=== PATIENT | male | born 1965 | race Caucasian/White ===

== ENCOUNTER → 2019-01-11 | Outpatient (CLI) | payer OTHER ==
--- NOTE | 2019-01-11 19:42 | DRAGON STRESS TEST REPORT ---
EXERCISE TREADMILL TEST. DATE OF PROCEDURE: January 11, 2019 INDICATION: Coronary artery disease Coronary risk factors: Hypertension, hyperlipidemia. Resting EKG: Sinus rhythm, no baseline ST segment changes. Stress EKG: No significant changes noted with with exercise treadmill. Reason for termination: Dyspnea and fatigue. PROCEDURE REPORT: Baseline heart rate: 52 beats per minute with blood pressure of 121/85. Patient had no significant complaints at baseline. Patient was exercised on a standard Stephen protocol. Patient exercised for total of 11 minutes and 11 seconds. Exercise was stopped because of fatigue and shortness of breath. Patient denied any chest arm or neck discomfort during the exercise, at peak exercise or in recovery. If automatic blood pressure recorded and if felt not accurate manual blood pressure then were recorded at appropriate intervals. Peak heart rate: 142 bpm, 85 of predicted maximum. Peak blood pressure: 173/74 mmHg. Double product: Adequate kcal Exercise EKG: Showed some baseline artifact during exercise but no significant ST segment changes noted. CONCLUSIONS: Normal EKG and hemodynamic response to exercise. Excellent exercise tolerance. Negative EKG changes with exercise. RECOMMENDATIONS: Aggressive risk factor modification, medical therapy. Consider cardiology consultation if clinically indicated. Fidel Davies M.D., [employer] Analyst automated teller manager, Board certified in cardiovascular diseases, Nuclear cardiology, Echocardiography Cardiac CT and cardiac MRI Ph. [phone] Ph. [phone] [facility]
--- NOTE | 2019-01-11 20:03 | XCELERA REPORT ---
[address] [address] Transthoracic Echocardiogram Report Name: ABA KAYE Age: 53 yrs Gender: Male : 1965 Patient Status: Outpatient Patient Location: Study Date: 01/11/2019 08:09 AM Height: 68 in Weight: 196 lb BSA: 2.0 m2 Procedure: A complete two-dimensional transthoracic echocardiogram was performed (2D, M-mode, spectral and color flow Doppler). The study was technically adequate with some images being suboptimal in quality. Reason For Study: CORONARY ARTERIAL DISEASE Ordering Physician: KULWANT PENA Performed By: Karen Murguia Interpretation Summary The left ventricular ejection fraction is normal. Doppler measurements suggest normal left ventricular diastolic function The left ventricle is grossly normal size. No regional wall motion abnormalities noted. The right ventricular systolic function is normal. The left atrial size is normal. The right atrium is normal. There is a trace amount of mitral regurgitation There is no mitral valve stenosis. No aortic regurgitation is present. There is no aortic valve stenosis There is a trace or physiologic amount of tricuspid regurgitation Tricuspid regurgitation jet envelope not well defined to measure RV systolic pressure accurately. The aortic root is not well visualized but is probably normal size. The inferior vena cava was not well visualized There is no pericardial effusion. MMode/2D Measurements & Calculations IVSd: 0.67 cm LVIDd: 5.1 cm FS: 37.3 % Ao root diam: LVIDs: 3.2 cm EDV(Teich): 3.1 cm 123.8 ml Ao root area: LVPWd: 0.94 cm ESV(Teich): 40.8 ml7.6 cm2 EF(Teich): 67.0 % EDV(MOD-sp4): SV(MOD-sp4): 92.2 ml 50.1 ml ESV(MOD-sp4): 42.1 ml EF(MOD-sp4): 54.3 % Doppler Measurements & Calculations MV E max dionisio: MV dec slope: Ao V2 max: LV V1 max P.1 cm/sec 90.0 cm/sec 2.7 mmHg MV A max dionisio: 522.9 cm/sec2 Ao max PG: LV V1 max: 56.4 cm/sec MV dec time: 0.16 sec 3.2 mmHg 82.4 cm/sec MV E/A: 1.4 PA V2 max: TR max dionisio: 85.5 cm/sec 196.6 cm/sec PA max P.9 mmHg TR max P.5 mmHg Left Ventricle The left ventricle is grossly normal size. The left ventricular ejection fraction is normal. Doppler measurements suggest normal left ventricular diastolic function. No regional wall motion abnormalities noted. Right Ventricle The right ventricle is grossly normal size. There is normal right ventricular wall thickness. The right ventricular systolic function is normal. Atria The right atrium is normal. The left atrial size is normal. Interarterial septum not well visualized and not well dopplered. Cannot comment on ASD/PFO presence. Mitral Valve The mitral valve is grossly normal. There is no mitral valve stenosis. There is a trace amount of mitral regurgitation. Aortic Valve The aortic valve is grossly normal. There is no aortic valve stenosis. No aortic regurgitation is present. Tricuspid Valve The tricuspid valve is not well visualized, but is grossly normal. There is no tricuspid stenosis. There is a trace or physiologic amount of tricuspid regurgitation. Tricuspid regurgitation jet envelope not well defined to measure RV systolic pressure accurately. Pulmonic Valve The pulmonic valve is not well seen, but is grossly normal. Great Vessels The aortic root is not well visualized but is probably normal size. The inferior vena cava was not well visualized. Effusions There is no pericardial effusion. : KULWANT PENA > Fidel Davies
== END ==
LOC: SP 07:42
PROVIDERS: ATTEND Physician Assistant
DX: I25.10 Atherosclerotic heart disease of native coronary artery without angina pectoris (principal); I10 Essential (primary) hypertension; E78.5 Hyperlipidemia, unspecified
CPT/HCPCS: 93017; 93306

== ENCOUNTER 2019-08-16 08:05 | Day surgery (SDC) | payer BC, OTHER ==
[2019-08-10 10:07] LABS: HEMATOCRIT 45.4 % (37.9-51.0); MEAN CORPUSCULAR HEMOGLOBIN 31.1 pg (27.0-33.4); MEAN CORPUSCULAR HGB CONC 35.2 g/dL (32.0-36.0); MEAN CORPUSCULAR VOLUME 88 fl (80-97); PLATELET COUNT 207 10^3/uL (150-450); RED BLOOD COUNT 5.14 10^6/uL (4.35-5.55); RED CELL DISTRIBUTION WIDTH 12.6 % (11.5-14.0); WHITE BLOOD COUNT 6.5 10^3/uL (4.0-10.5)
--- NOTE | 2019-08-10 10:12 | EKG REPORT ---
SEVERITY:- NORMAL ECG - SINUS RHYTHM : Confirmed by: Jeanette Zamora MD 10-Aug-2019 10:11:22
[2019-08-10 10:44] LABS: ANION GAP 11 (5-19); BLOOD UREA NITROGEN 20 mg/dL (7-20); CALCIUM 9.5 mg/dL (8.4-10.2); CARBON DIOXIDE 31 mmol/L (22-30); CHLORIDE 100 mmol/L (98-107); GLUCOSE 107 mg/dL (75-110); POTASSIUM 4.9 mmol/L (3.6-5.0)
[~2019-08-16 08:05] MED LIST: CEFAZOLIN 1 GM/D5W RTU 1 GM/50 ML RTUPB IV PRN; LACTATED RINGERS 1000 ML IV PRN; LIDOCAINE 0.5% INJ-PF (5 MG/ML) 50 ML SDV SUBCUT PRN
[2019-08-16] MEDS ORDERED: ONDANSETRON HCL INJ/PF 4 MG/2 ML SDV ONE (08:38)
[2019-08-16] MEDS ORDERED: DEXAMETHASONE SOD PHOSPHATE INJ 4 MG/1 ML VIAL ONE (08:38)
[2019-08-16] MEDS ORDERED: KETOROLAC TROMETHAMINE 60 MG/2 ML SDV ONE (08:38)
[2019-08-16] MEDS ORDERED: PROPOFOL INJ 200 MG/20 ML VIAL IV ONE (08:38)
[2019-08-16] MEDS ORDERED: MIDAZOLAM 2 MG/2 ML INJ ONE (08:38)
[2019-08-16] MEDS ORDERED: FENTANYL CITRATE INJ/PF 100 MCG/2 ML AMPUL ONE (08:38)
[2019-08-16] MEDS ORDERED: DIPHENHYDRAMINE HCL 50 MG/ML VIAL IV PRN (09:41)
[2019-08-16] MEDS ORDERED: OXYCODONE-ACETAMINOPHEN 5-325 MG TABLET PO PRN (09:41)
[2019-08-16] MEDS ORDERED: MEPERIDINE HCL/PF INJ 25 MG/1 ML DISP.SYRIN IV PRN (09:41)
[2019-08-16] MEDS ORDERED: ONDANSETRON HCL INJ/PF 4 MG/2 ML SDV IV PRN (09:41)
[2019-08-16] MEDS ORDERED: FENTANYL CITRATE INJ/PF 100 MCG/2 ML AMPUL IV PRN ×3 (09:41)
[2019-08-16] MEDS ORDERED: MORPHINE SULFATE 10 MG/ML INJ IV PRN (09:41)
[2019-08-16] MEDS ORDERED: PROMETHAZINE HCL INJ 25 MG/1 ML VIAL IV PRN (09:41)
[2019-08-16] MEDS ORDERED: CEFAZOLIN 1 GM/D5W RTU 1 GM/50 ML RTUPB IV ONE (10:24)
[2019-08-16] MEDS ORDERED: BUPIVACAINE INJ/PF LIPOSOME/PF 266 MG/20 ML SDV ONE (10:35)
--- NOTE | 2019-08-16 12:31 | Operative Report ---
Nonrecallable Operative Report DATE OF SURGERY: 08/16/19 PREOPERATIVE DIAGNOSIS: Right inguinal hernia POSTOPERATIVE DIAGNOSIS: Right inguinal hernia OPERATION: Laparoscopic right inguinal hernia repair SURGEON: MELISSA ALBA ANESTHESIA: GA TISSUE REMOVED OR ALTERED: None COMPLICATIONS: None ESTIMATED BLOOD LOSS: 2 cc INTRAOPERATIVE FINDINGS: See note PROCEDURE: Procedure note after appropriate timeout site verification the abdomen was prepped and draped in usual sterile fashion. Infraumbilical 10 mm incision was made with a 15 blade and dissection was carried out through subcutaneous tissue with Bovie cautery the rectus fascia anterior sheath was opened transversely with a 15 blade and the muscle was identified it was retracted laterally the balloon dissector was then placed on top of the posterior sheath down to the pubic tubercle it was insufflated under direct vision and then desufflated and removed. The working port was then placed into that incision under direct vision 2 5 mm ports were placed in the midline. The tension was then turned to the right side first the peritoneum was dissected off the transversalis fascia with blunt dissection to identify the cord structures Jacinto's ligament and the hasselbach triangle was also identified. Patient did not have a direct inguinal hernia however there was peritoneum extending down to the lateral aspect of the cord structures into the internal ring. This was consistent with a indirect inguinal hernia. After the peritoneum was dissected off the spermatic cord a piece of polypropylene mesh measuring 6 cm long by 3 cm wide was fashioned with a slit down the side placed in the retroperitoneum and fixed posteriorly to Jacinto's ligament anterior to the rectus fascia laterally transversalis fascia being careful not to injure the lateral femoral cutaneous nerve Then attention was then turned to the left side the peritoneum was dissected off the transversalis fascia laterally and continued inferiorly to identify the cord structures of the peritoneum did not extend into the internal ring on the cord structures therefore he did not have a indirect inguinal hernia in addition to that hasselbach Vancleve was identified and there was no direct inguinal hernia. After coming pleading exploration of the left side and identifying no inguinal hernia we reduce the pneumoperitoneum we closed the fascial defect at the umbilical port site with 0 Vicryl in the fascia and then closed all 3 skin incisions with intracuticular 3-0 Biosyn Steri-Strips clean completed the procedure estimated blood loss was less than 10 cc sponge needle counts were correct x2 the patient was awakened in the operating room extubated transferred recovery stable condition no complications
--- NOTE | 2019-08-16 12:34 | Discharge Summary ---
Discharge Summary (SDC) - Discharge Final Diagnosis: Right inguinal hernia Date of Surgery: 08/16/19 Discharge Date: 08/16/19 Condition: Good Referrals: KULWANT PENA PA-C [Primary Care Provider] - Discharge Diet: As Tolerated Discharge Activity: No Lifting Over 10 Pounds Report the Following to Your Physician Immediately: Yellow Skin, Fever over 101 Degrees, Swelling
[2019-08-16] MEDS ORDERED: TRAMADOL HCL 50 MG TABLET ONE (12:53)
[2019-08-16] MEDS ORDERED: TRAMADOL HCL 50 MG TABLET PO PRN (12:56)
[2019-08-16 14:12] VITALS: BP 122/88
[2019-08-16] MEDS ORDERED: SUCCINYLCHOLINE CHLORIDE INJ 200 MG/10 ML VIAL ONE (15:01)
[2019-08-16] MEDS ORDERED: ROCURONIUM BROMIDE INJ 50 MG/5 ML VIAL IV ONE (15:01)
== END 2019-08-16 13:45 | disposition home or self-care (01) ==
LOC: OROUT 08:05
PROVIDERS: ATTEND Surgery
DX: K40.90 Unilateral inguinal hernia, without obstruction or gangrene, not specified as recurrent (principal); I25.10 Atherosclerotic heart disease of native coronary artery without angina pectoris; E78.00 Pure hypercholesterolemia, unspecified; Z79.82 Long term (current) use of aspirin; Z79.899 Other long term (current) drug therapy; Z79.51 Long term (current) use of inhaled steroids; J45.909 Unspecified asthma, uncomplicated
CPT/HCPCS: 93005; 36415; 85027; 80048; 93010; 49650; C1781; C1713; J2250; J0690; J3490; J1100; J3010; J0330; J2405; J2704; C9290; 840; J1885